=== PATIENT | male | born 1970 | race Two or more races ===

== ENCOUNTER 2018-04-28 13:52 | Emergency (ER) | payer MEDICARE, OTHER ==
[2018-04-28 14:16] VITALS: RESP 16
--- NOTE | 2018-04-28 14:45 | XR ---
EXAMINATION TYPE: XR toes RT DATE OF EXAM: 04/28/2018 COMPARISON: Bilateral foot x-ray February 02, 2015 HISTORY: Contusion injury with pain. TECHNIQUE: 3 views of right first toe were acquired. FINDINGS: There is acute oblique minimally displaced fracture through mid shaft of first proximal pha lanx, distal fracture fragment is slightly distracted with abnormal dorsal angulation seen on lateral view. Joint spaces are preserved. Moderate diffuse subcutaneous edema is present. IMPRESSION: Acute displaced oblique fracture through the first proximal phalanx. (Initial encounter close type post traumatic fracture)
--- NOTE | 2018-04-28 15:09 | ED ---
Lower Extremity Injury HPI - General Chief Complaint: Extremity Injury, Lower Stated Complaint: Foot injury Time Seen by Provider: 04/28/18 14:36 Source: patient Mode of arrival: wheelchair Limitations: no limitations - History of Present Illness Initial Comments: 47-year-old male presents today for chief complaint of right great toe pain. Patient states that just 5 minutes prior to arrival he was at his home when his cat had brought a mouse into the home. He states he went to kick the mouse when he accidentally kicked the door frame. Patient noted swelling in his big toe and pain with ambulation and weightbearing. Patient denied any pain in the ankle. Patient was concerned for fracture present today for evaluation. Patient denies any numbness, tingling, loss sensation, cooler or pallor of the extremity. Patient denies any gross deformity, abrasions or lacerations. Remainder of ROS negative, patient denies any recent fever, chills, shortness of breath, chest pain, back pain, abdominal pain, nausea or vomiting, numbness or tingling, dysuria or hematuria, constipation or diarrhea, headaches or visual changes, or any other complaints. Patient is well-appearing upon arrival , elevated BP noted. - Related Data Previous Rx's Medication Instructions Recorded HYDROcodone/APAP 5-325MG [[place] 1 tab PO Q6HR #10 tab 04/17/16 5-325] Allergies Allergy/AdvReac Type Severity Reaction Status Date / Time No Known Allergies Allergy Verified 04/28/18 14:16 Review of Systems ROS Statement: Those systems with pertinent positive or pertinent negative responses have been documented in the HPI. ROS Other: All systems not noted in ROS Statement are negative. Constitutional: Denies: fever, chills ENT: Denies: ear pain, throat pain Respiratory: Denies: cough, dyspnea, wheezes Cardiovascular: Denies: chest pain, palpitations Endocrine: Denies: fatigue Gastrointestinal: Denies: abdominal pain, nausea, vomiting, diarrhea Genitourinary: Denies: urgency, dysuria Musculoskeletal: Reports: joint swelling (Swelling at the right great toe), arthralgia Skin: Reports: change in color (Bruising of the right great toe). Denies: rash (Right great toe), lesions Neurological: Denies: headache, weakness, numbness, paresthesias Past Medical History Past Medical History: Diabetes Mellitus, Hypertension Additional Past Medical History / Comment(s): Chronic back pain, sleep apnea, History of Any Multi-Drug Resistant Organisms: None Reported Past Surgical History: Orthopedic Surgery Additional Past Surgical History / Comment(s): Knee and shoulder surgery Past Psychological History: PTSD Smoking Status: Never smoker Past Alcohol Use History: Rare Past Drug Use History: None Reported General Exam - General Exam Comments Initial Comments: General: The patient is awake and alert, in no distress, and does not appear acutely ill. Eye: Pupils are equal, round and reactive to light, extra-ocular movements are intact. No nystagmus. There is normal conjunctiva bilaterally. No signs of icterus. Ears, nose, mouth and throat: There are moist mucous membranes and no oral lesions. Neck: The neck is supple, there is no tenderness or JVD. Cardiovascular: There is a regular rate and rhythm. No murmur, rub or gallop is appreciated. Respiratory: Lungs are clear to auscultation, respirations are non-labored, breath sounds are equal. No wheezes, stridor, rales, or rhonchi. Musculoskeletal: No noted gross deformity upon inspection of the right great toe. Pt is able to wiggle all 5 digits of the right foot. There is noted swelling over the length of the right great toe. As well as ecchymosis. Patient is full sensation to light palpation over the right great toe as well as the foot. There is some mild swelling at the base of the right great toe however this does not extend throughout the forefoot. Patient is tender to palpation along the length of the right great toe to the base at the MTP joint. Patient denies any tenderness to palpation at the ankle. Patient is able to range at the ankle with flexion, extension inversion eversion without any complaints of pain and with strength 5/5. DP Pulses equal bilaterally 2+. Capillary refill < 2seconds. Neurological: A&O x 3. CN II-XII intact, There are no obvious motor or sensory deficits. Coordination appears grossly intact. Speech is normal. Skin: Skin is warm and dry and no rashes or lesions are noted. Psychiatric: Cooperative, appropriate mood & affect, normal judgment. Limitations: no limitations Course Vital Signs 04/28/18 04/28/18 14:14 16:29 Temperature 98.4 F 98.2 F Pulse Rate 95 90 Respiratory 16 16 Rate Blood Pressure 153/99 132/78 O2 Sat by Pulse 95 100 Oximetry Medical Decision Making - Medical Decision Making Patient neurovascularly intact. No pain to palpation over lis franc ligament. X -rays revealed an acute comminuted displaced fracture through the first proximal phalanx with mild dorsal angulation. Pt was placed in a posterior mold splint given crutches for ambulation and instructed to f/u with orthopedic surgery in the next 1-2 days. Case discussed with Dr. Velez who agrees the impression and plan. Patient was discharged in stable condition. All return parameters were discussed at length patient, patient verbalized understanding. Patient is to follow rice instruction and take ibuprofen Tylenol for pain management. Patient verbalized understanding of all return parameters and plan, denied questions at this time. Marked improvement of prior elevated blood pressure upon discharge. Disposition Clinical Impression: Closed fracture of left great toe Disposition: HOME SELF-CARE Condition: Good Instructions: Toe Fracture (ED), R.I.C.E. Treatment (ED) Additional Instructions: Please use medication as discussed. Please follow-up with orthopedic surgery in the next 1-2 days. Please use crutches for ambulation. Please return to emergency room if the symptoms increase or worsen or for any other concerns. Is patient prescribed a controlled substance at d/c from ED?: No Referrals: [facility],Clinic [Primary Care Provider] - 1-2 days Evans Tucker MD [STAFF PHYSICIAN] - 1-2 days Time of Disposition: 15:09
--- NOTE | 2018-04-28 15:51 | XR ---
EXAMINATION TYPE: XR foot complete RT DATE OF EXAM: 04/28/2018 CLINICAL HISTORY: Contusion injury with pain. TECHNIQUE: Frontal, lateral, and oblique images of the right foot are obtained. COMPARISON: Right first toe x-ray earlier today FINDINGS: There is redemonstration of an acute comminuted displaced fracture through first proximal p halanx with slight distraction remaining present there is interval improvement in dorsal angulation o n lateral view. Evaluation slightly suboptimal due to osseous overlap on lateral view. There is no ad ditional acute fracture/dislocation evident in the right foot. The joint spaces in the right foot ap pear within normal limits. Incidental moderate size inferior calcaneal spur. The overlying soft tiss ue appears unremarkable. IMPRESSION: There is no additional acute fracture or dislocation in the right foot. Better visualiza tion of acute comminuted minimally displaced fracture first proximal phalanx on current study, interv al improvement in dorsal angulation felt present.
[2018-04-28 16:30] VITALS: BP 132/78; PULSE 90; TEMP 98.2
== END 2018-04-28 16:29 | disposition home or self-care (01) ==
LOC: EC 13:52
DX: S92.411A Displaced fracture of proximal phalanx of right great toe, initial encounter for closed fracture (principal); W22.8XXA Striking against or struck by other objects, initial encounter; Y92.009 Unspecified place in unspecified non-institutional (private) residence as the place of occurrence of the external cause
CPT/HCPCS: 29515; 99283

== ENCOUNTER 2019-07-27 16:34 | Observation (INO) | payer MEDICARE, OTHER ==
[2019-07-27] MEDS ORDERED: ASPIRIN 81 MG PO STA (17:09)
--- NOTE | 2019-07-27 17:22 | ED ---
Chest Pain HPI - General Chief Complaint: Chest Pain Stated Complaint: chest pain Time Seen by Provider: 07/27/19 16:42 Source: patient, family, RN notes reviewed Mode of arrival: ambulatory Limitations: no limitations - History of Present Illness Initial Comments: This is a 48-year-old male no prior history of heart disease with a strong family history of heart disease who states he had the onset today of sharp chest pain going across his chest. States it would be fleeting is had increased episodes over this afternoon. It is worse is 6-7/10 in severity currently is 0 as so stably shortness of breath cough fevers chills nausea vomiting sweats he is unable to reproduce it by movements. No other modifying factors. He is a nonsmoker. MD Complaint: chest pain - Related Data Home Medications Medication Instructions Recorded Confirmed Aspirin EC [Ecotrin Low Dose] 81 mg PO DAILY 07/27/19 07/27/19 Atorvastatin [Lipitor] 20 mg PO DAILY 07/27/19 07/27/19 Lisinopril [Prinivil] 10 mg PO DAILY 07/27/19 07/27/19 Ubidecarenone [Co Q-10] 200 mg PO DAILY 07/27/19 07/27/19 sitaGLIPtin [Januvia] 100 mg PO DAILY 07/27/19 07/27/19 Allergies Allergy/AdvReac Type Severity Reaction Status Date / Time No Known Allergies Allergy Verified 07/27/19 18:01 Review of Systems ROS Statement: Those systems with pertinent positive or pertinent negative responses have been documented in the HPI. ROS Other: All systems not noted in ROS Statement are negative. EKG Findings - EKG Results: EKG: interpreted by DANIEL WNL, sinus rhythm, normal axis, normal QRS, normal ST/T, no acute changes (EKG shows normal sinus rhythm a 64. Interval 180 QRS duration 86 daily since QTC 420/[address]-T wave changes) Past Medical History Past Medical History: Diabetes Mellitus, Hypertension, Sleep Apnea/CPAP/BIPAP Additional Past Medical History / Comment(s): Chronic back pain, sleep apnea, History of Any Multi-Drug Resistant Organisms: None Reported Past Surgical History: Orthopedic Surgery Additional Past Surgical History / Comment(s): Knee and shoulder surgery Past Psychological History: PTSD Smoking Status: Never smoker Past Alcohol Use History: Occasional Past Drug Use History: None Reported General Exam - General Exam Comments Initial Comments: This is a well-developed well-nourished awake alert oriented 3 male Limitations: no limitations General appearance: alert, in no apparent distress Head exam: Present: atraumatic, normocephalic, normal inspection Eye exam: Present: normal appearance, PERRL, EOMI. Absent: scleral icterus, conjunctival injection, periorbital swelling ENT exam: Present: normal exam, mucous membranes moist Neck exam: Present: normal inspection. Absent: tenderness, meningismus, lymphadenopathy Respiratory exam: Present: normal lung sounds bilaterally. Absent: respiratory distress, wheezes, rales, rhonchi, stridor Cardiovascular Exam: Present: regular rate, normal rhythm, normal heart sounds. Absent: systolic murmur, diastolic murmur, rubs, gallop, clicks GI/Abdominal exam: Present: soft, normal bowel sounds. Absent: distended, tenderness, guarding, rebound, rigid Extremities exam: Present: normal inspection, full ROM, normal capillary refill. Absent: tenderness, pedal edema, joint swelling, calf tenderness Back exam: Present: normal inspection Neurological exam: Present: alert, oriented X3, CN II-XII intact Psychiatric exam: Present: normal affect, normal mood Skin exam: Present: warm, dry, intact, normal color. Absent: rash Course Vital Signs 07/27/19 07/27/19 16:47 17:23 Temperature 98.4 F Pulse Rate 66 68 Respiratory 18 18 Rate Blood Pressure 153/100 145/100 O2 Sat by Pulse 93 L 100 Oximetry Chest Pain MDM - MDM I did reevaluate patient on several occasions no further chest pain reported. X-rays are unremarkable for acute findings. I did a long discussion with family regarding the findings patient does have extensive family history of heart disease at a younger age and he is at this time. Due to the fact as well as of patient does now state that felt more like a 2 x 4 going across his chest and a sharp knifelike pain patient be admitted for further inpatient evaluation. The case is discussed with Christina Lake's FILTER [employer]ESS PU[employer]ER Disposition Clinical Impression: Chest pain Disposition: ADMITTED IP TO THIS HOSP Condition: Fair Referrals: Maribell Cotter DO [Primary Care Provider] - 1-2 days
[2019-07-27 17:31] LABS: Basophils % (A) 1 %; Eosinophils # (A) 0.1 k/uL (0-0.7); Eosinophils % (A) 1 %; HCT 45.7 % (39.0-53.0); HGB 15.5 gm/dL (13.0-17.5); Lymphocytes # (A) 2.1 k/uL (1.0-4.8); Lymphocytes % (A) 28 %; MCH 29.1 pg (25.0-35.0); MCV 85.6 fL (80.0-100.0); Mean Platelet Volume 8.7; Monocytes # (A) 0.5 k/uL (0-1.0); Monocytes % (A) 6 %; Neutrophils # (A) 4.7 k/uL (1.3-7.7); Neutrophils % (A) 62 %; Platelet Count 238 k/uL (150-450); RBC 5.33 m/uL (4.30-5.90); WBC 7.6 k/uL (3.8-10.6)
[2019-07-27 17:45] LABS: ALT 39 U/L (4-49); AST 27 U/L (17-59); African American GFR (CKD) >90 (>60 ml/min/1.73 sqM); Albumin 4.4 g/dL (3.5-5.0); Alkaline Phosphatase 83 U/L (38-126); Anion Gap 9 mmol/L; Blood Urea Nitrogen 14 mg/dL (9-20); Calcium 9.1 mg/dL (8.4-10.2); Carbon Dioxide 27 mmol/L (22-30); Chloride 101 mmol/L (98-107); Glucose 209 mg/dL (74-99); Magnesium 2.1 mg/dL (1.6-2.3); Non-African American GFR(CKD) >90 (>60 ml/min/1.73 sqM); Potassium 3.9 mmol/L (3.5-5.1); Sodium 137 mmol/L (137-145); Total Bilirubin 0.4 mg/dL (0.2-1.3); Total Protein 6.9 g/dL (6.3-8.2)
[2019-07-27 17:48] LABS: D-Dimer 0.32 mg/L FEU (<0.60); Partial Thromboplastin Time 24.6 sec (22.0-30.0); Prothrombin Time 9.9 sec (9.0-12.0)
--- NOTE | 2019-07-27 18:54 | XR ---
EXAMINATION TYPE: XR chest 2V DATE OF EXAM: 07/27/2019 COMPARISON: 03/13/2016 HISTORY: Chest pain TECHNIQUE: FINDINGS: Heart and mediastinum are normal. There is small linear density left lung base. There is no pleural effusion. There are no hilar masses. IMPRESSION: Mild subsegmental atelectasis left lung base is new compared to old exam. Normal heart.
[2019-07-27] MEDS ORDERED: NITROGLYCERIN SL TABS 0.4 MG TAB SUBLINGUAL PRN (19:31)
[2019-07-27] MEDS ORDERED: SODIUM CHLORIDE 0.9% 1,000 ML IV SCH (19:45)
[2019-07-27] MEDS ORDERED: NITROGLYCERIN OINT 1 INCH/GM PACKET TOPICAL STA (20:14)
[2019-07-27] MEDS ORDERED: HEPARIN SODIUM,PORCINE 5,000 UNIT/ML 1 ML VIAL IV ONE (20:19)
[2019-07-27] MEDS ORDERED: HEPARIN SODIUM,PORCINE 5,000 UNIT/ML 1 ML VIAL IV PRN (20:19)
[2019-07-27] MEDS ORDERED: HEPARIN SOD,PORK IN 0.45% NACL 25,000 UNIT in 0.45% NACL 1 250ML.BAG IV SCH (20:30)
[2019-07-27] MEDS ORDERED: LISINOPRIL 10 MG TAB PO STA (20:43)
[2019-07-28] MEDS ORDERED: ACETAMINOPHEN TAB 325 MG TAB PO STA (01:40)
[2019-07-28] MEDS: NITROGLYCERIN OINT 1 INCH/GM PACKET TOPICAL SCH ×2 (01:56→09:16)
[2019-07-28 05:33] LABS: Basophils % (A) 0 %; Eosinophils # (A) 0.1 k/uL (0-0.7); Eosinophils % (A) 1 %; HCT 44.2 % (39.0-53.0); Lymphocytes % (A) 22 %; MCH 29.2 pg (25.0-35.0); MCHC 33.9 g/dL (31.0-37.0); MCV 86.2 fL (80.0-100.0); Mean Platelet Volume 8.6; Monocytes # (A) 0.4 k/uL (0-1.0); Monocytes % (A) 4 %; Neutrophils # (A) 6.2 k/uL (1.3-7.7); Neutrophils % (A) 71 %; Platelet Count 231 k/uL (150-450); RBC 5.13 m/uL (4.30-5.90); RDW 13.1 % (11.5-15.5); WBC 8.7 k/uL (3.8-10.6)
[2019-07-28 05:53] LABS: Cholesterol 138 mg/dL (<200); HDL Cholesterol 44 mg/dL (40-60); LDL Cholesterol,Calculated 73 mg/dL (0-99); Triglycerides 104 mg/dL (<150)
[2019-07-28 07:57] VITALS: RESP 18
[2019-07-28] MEDS ORDERED: AMINOPHYLLINE 500 MG/20 ML VIAL IV PRN (08:32)
[2019-07-28] MEDS ORDERED: CAFFEINE CITRATE 60 MG/3 ML VIAL IV PRN (08:32)
[2019-07-28] MEDS ORDERED: ASPIRIN 325 MG TAB PO SCH (09:00)
[2019-07-28] MEDS ORDERED: DIPYRIDAMOLE IV ONE (09:00)
[2019-07-28] MEDS ORDERED: ASPIRIN 81 MG PO SCH (09:00)
[2019-07-28] MEDS ORDERED: ATORVASTATIN 20 MG TAB PO SCH (09:00)
[2019-07-28] MEDS ORDERED: SODIUM CHLORIDE 0.9% IV ONE (09:00)
[2019-07-28] MEDS ORDERED: LISINOPRIL 10 MG TAB PO SCH (09:00)
[2019-07-28] MEDS ORDERED: LINAGLIPTIN 5 MG TABLET PO SCH (09:00)
[2019-07-28] MEDS ORDERED: AMINOPHYLLINE 500 MG/20 ML VIAL IV ONE (10:05)
--- NOTE | 2019-07-28 10:19 | P.CRDCN ---
History of Present Illness History of present illness: HISTORY OF PRESENTING ILLNESS This is a pleasant 48-year-old male past medical history significant for diabetes mellitus, hypertension, obstructive sleep apnea and chronic back pain. He denies prior history of coronary artery disease and does not follow in the office with a cost estimator. We have been asked to see in consultation for chest pain. He said yesterday while he was driving in the car he had an episode of chest discomfort in the left precordial region with radiation to the left shoulder. He states it felt like somebody had a 2 x 4 most pressing against his chest. The symptoms lasted for about 3-5 minutes and slowly subsided on their own. It was not associated with shortness of breath, dizziness, palpitations, nausea, vomiting or diaphoresis. A couple of hours later after he was done with his shopping he had another episode of discomfort in the left precordial region again with radiation to the left shoulder with similar type sensation at this time was associated with a brief period of feeling lightheaded. He pulled the car over asked his drive him to the emergency department. He has had no further symptoms since arriving in the hospital. His pain had subsided prior to arrival. He states he has been noncompliant with his antihypertensive medicatio ns. Blood pressure on arrival 153/100 with a peak of 176/113. DIAGNOSTICS EKG reveals sinus mechanism with flattened T waves in the inferior lateral leads. Chest xray mild subsegmental atelectasis at the left lung base. Laboratory reviewed, CBC unremarkable, d-dimer 0.32, sodium 137, potassium 3.9, creatinine 0.61 with a GFR greater than 90, magnesium 2.1, cardiac enzymes negative 3, NT proBNP 22, LDL 73. Current cardiac medications include aspirin 81 mg daily, atorvastatin 20 mg daily and lisinopril 10 mg daily. REVIEW OF SYSTEMS At the time of my exam: CONSTITUTIONAL: Denies fever or chills. CARDIOVASCULAR: Denies chest pain, shortness of breath, orthopnea, PND or palpitations. RESPIRATORY: Denies cough. GASTROINTESTINAL: Denies abdominal pain, diarrhea, constipation, nausea or vom iting. MUSCULOSKELETAL: Denies myalgias. NEUROLOGIC: Denies numbness, tingling or weakness. ENDOCRINE: Denies fatigue, weight change, polydipsia or polyurina. GENITOURINARY: Denies burning, hematuria or urgency with micturation. HEMATOLOGIC: Denies history of anemia or bleeding. PHYSICAL EXAMINATION Blood pressure 122/74 heart rate 56 afebrile and maintaining oxygen saturation on room air. CONSTITUTIONAL: No apparent distress. HEENT: Head is normocephalic. Pupils are equal, round. Sclerae anicteric. Mucous membranes of the mouth are moist. No JVD. No carotid bruit. CHEST EXAMINATION: Lungs are clear to auscultation. No chest wall tenderness is noted on palpation or with deep breathing. HEART EXAMINATION: Regular rate and rhythm. S1, S2 heard. No murmurs, gallops or rub. ABDOMEN: Soft, nontender. Positive bowel sounds. EXTREMITIES: 2+ peripheral pulses, no lower extremity edema and no calf tenderness. NEUROLOGIC EXAMINATION: Patient is awake, alert and oriented x3. ASSESSMENT Precordial chest pain Hypertension, uncontrolled secondary to noncompliance Diabetes mellitus Dyslipidemia Obstructive sleep apnea Obesity, BMI 33 PLAN An acute coronary event has been ruled out. Obtain 2-D echocardiogram and Doppler study to assess cardiac structure and function. Proceed with Persantine stress test to assess for reversible cardiac ischemia. If abnormal we will consider coronary angiography. Lengthy discussion regarding medication compliance. Check hemoglobin A1c. Thank you kindly for this consultation. Nurse Practitioner note has been reviewed, I agree with a documented findings and plan of care. Patient was seen and examined. Past Medical History Past Medical History: Diabetes Mellitus, Hypertension, Sleep Apnea/CPAP/BIPAP Additional Past Medical History / Comment(s): Chronic back pain, sleep apnea, TBI History of Any Multi-Drug Resistant Organisms: None Reported Past Surgical History: Orthopedic Surgery Additional Past Surgical History / Comment(s): Knee and shoulder surgery Past Anesthesia/Blood Transfusion Reactions: Previous Problems w/ Anesthesia Additional Past Anesthesia/Blood Transfusion Reaction / Comment(s): Had to be reintubated in recovery due to possible anestesia reaction. Past Psychological History: PTSD Smoking Status: Never smoker Past Alcohol Use History: Occasional Past Drug Use History: None Reported Medications and Allergies Home Medications Medication Instructions Recorded Confirmed Type Aspirin EC [Ecotrin Low Dose] 81 mg PO DAILY 07/27/19 07/27/19 History Atorvastatin [Lipitor] 20 mg PO DAILY 07/27/19 07/27/19 History Lisinopril [Prinivil] 10 mg PO DAILY 07/27/19 07/27/19 History Ubidecarenone [Co Q-10] 200 mg PO DAILY 07/27/19 07/27/19 History sitaGLIPtin [Januvia] 100 mg PO DAILY 07/27/19 07/27/19 History Allergies Allergy/AdvReac Type Severity Reaction Status Date / Time No Known Allergies Allergy Verified 07/27/19 18:01 Physical Exam Vitals: Vital Signs Temp Pulse Pulse Resp BP BP BP 07/28/19 07:40 97.5 F L 56 L 18 122/74 07/28/19 04:30 98.3 F 67 15 107/66 07/27/19 22:45 98.0 F 65 16 148/90 07/27/19 22:23 65 18 158/98 07/27/19 20:39 61 18 170/107 07/27/19 20:10 157/110 07/27/19 20:07 65 18 176/113 07/27/19 19:36 63 18 154/91 07/27/19 17:23 68 18 145/100 07/27/19 16:47 98.4 F 66 18 153/100 Pulse Ox 07/28/19 07:40 98 07/28/19 04:30 96 07/27/19 22:45 97 07/27/19 22:23 98 07/27/19 20:39 100 07/27/19 20:10 07/27/19 20:07 97 07/27/19 19:36 98 07/27/19 17:23 100 07/27/19 16:47 93 L Intake and Output 07/27/19 07/28/19 07/28/19 22:59 06:59 14:59 Intake Total 62.588 Balance 62.588 Intake: Intake, IV Titration 62.588 Amount Heparin Sod,Pork in 0.45% 62.588 NaCl 25,000 unit In 0.45 % NaCl 1 250ml.bag @ 9.7 UNITS/KG/HR 9.961 mls/hr IV .Q24H [facility] Rx#: [id number] Other: Voiding Method Toilet # Voids 1 Weight 102.693 kg Results 07/28/19 05:11 07/27/19 17:00 Cardiac Enzymes 07/27/19 07/27/19 07/27/19 Range/Units 17:00 17:00 23:25 AST 27 (17-59) U/L Troponin I <0.012 <0.012 (0.000-0.034) ng/mL 07/28/19 Range/Units 05:11 AST (17-59) U/L Troponin I <0.012 (0.000-0.034) ng/mL Coagulation 07/27/19 07/28/19 Range/Units 17:00 02:24 PT 9.9 (9.0-12.0) sec APTT 24.6 35.3 H (22.0-30.0) sec Lipids 07/28/19 Range/Units 05:11 Triglycerides 104 (<150) mg/dL Cholesterol 138 (<200) mg/dL HDL Cholesterol 44 (40-60) mg/dL CBC 07/27/19 07/28/19 Range/Units 17:00 05:11 WBC 7.6 8.7 (3.8-10.6) k/uL RBC 5.33 5.13 (4.30-5.90) m/uL Hgb 15.5 15.0 (13.0-17.5) gm/dL Hct 45.7 44.2 (39.0-53.0) % Plt Count 238 231 (150-450) k/uL Comprehensive Metabolic Panel 07/27/19 Range/Units 17:00 Sodium 137 (137-145) mmol/L Potassium 3.9 (3.5-5.1) mmol/L Chloride 101 (98-107) mmol/L Carbon Dioxide 27 (22-30) mmol/L BUN 14 (9-20) mg/dL Creatinine 0.61 L (0.66-1.25) mg/dL Glucose 209 H (74-99) mg/dL Calcium 9.1 (8.4-10.2) mg/dL AST 27 (17-59) U/L ALT 39 (4-49) U/L Alkaline Phosphatase 83 (38-126) U/L Total Protein 6.9 (6.3-8.2) g/dL Albumin 4.4 (3.5-5.0) g/dL Current Medications Generic Name Dose Route Start Last Admin Trade Name Freq PRN Reason Stop Dose Admin Aspirin 325 mg 07/28/19 09:00 Aspirin PO DAILY [facility] Atorvastatin Calcium 20 mg 07/28/19 09:00 Lipitor PO DAILY [facility] Heparin Sodium (Porcine) 0 unit 07/27/19 20:19 07/28/19 02:52 Heparin IV 2,550 unit PER PROTOCOL PRN Administration Low PTT Protocol Sodium Chloride 1,000 mls @ 20 mls/hr 07/27/19 19:45 07/27/19 20:34 Saline 0.9% IV 20 mls/hr .Q24H JYOTHI Administration Heparin Sodium/Sodium Chloride 250 mls @ 9.961 mls/hr 07/27/19 20:30 07/28/19 02:53 25,000 unit/ Sodium Chloride IV 11.7 units/kg/hr .Q24H JYOTHI 12.015 mls/hr Titration Protocol 9.7 UNITS/KG/HR Linagliptin 5 mg 07/28/19 09:00 Tradjenta PO DAILY [facility] Lisinopril 10 mg 07/28/19 09:00 Zestril PO DAILY [facility] Nitroglycerin 0.4 mg 07/27/19 19:31 07/27/19 20:06 Nitrostat SUBLINGUAL 0.4 mg Q5M PRN Administration Chest Pain Nitroglycerin 1 inch 07/28/19 00:00 07/28/19 01:56 Nitro-Bid Oint TOPICAL Not Given Q6HR [facility] Intake and Output 07/27/19 07/28/19 07/28/19 22:59 06:59 14:59 Intake Total 62.588 Balance 62.588 Intake: Intake, IV Titration 62.588 Amount Heparin Sod,Pork in 0.45% 62.588 NaCl 25,000 unit In 0.45 % NaCl 1 250ml.bag @ 9.7 UNITS/KG/HR 9.961 mls/hr IV .Q24H [facility] Rx#: [id number] Other: Voiding Method Toilet # Voids 1 Weight 102.693 kg 07/28/19 05:11 07/27/19 17:00
--- NOTE | 2019-07-28 11:33 | NM ---
EXAMINATION TYPE: NM stress persantine cardiolit DATE OF EXAM: 07/28/2019 COMPARISON: NONE HISTORY: Chest pain TECHNIQUE: After the intravenous administration of 10.45 mCi Tc 99m Sestamibi - Cardiolite resting S PECT images acquired 45 minutes post injection. The patient received 55 mg Persantine, 23.4 mCi Tc 99m Sestamibi - Stress images obtained 30 minutes post injection FINDINGS: Review of stress and rest SPECT images demonstrates no distinct perfusion abnormality. Rest defect i s seen of the lateral wall that is not redemonstrated on stress images and is therefore artifactual. Gated analysis shows normal wall motion with an estimated left ventricular ejection fraction of 53 %. TID is within normal limits calculated at 1.10. IMPRESSION: No scintigraphic evidence for reversible ischemia. Estimated left ventricular ejection fraction of 53 %.
--- NOTE | 2019-07-28 13:00 | ECHOF ---
Referral Reason:Chest pain MEASUREMENTS -------- HEIGHT: 175.3 cm WEIGHT: 102.5 kg BP: 107/66 RVIDd: 3.5 cm (< 3.3) IVSd: 1.5 cm (0.6 - 1.1) LVIDd: 4.8 cm (3.9 - 5.3) LVPWd: 1.2 cm (0.6 - 1.1) IVSs: 1.7 cm LVIDs: 2.9 cm LVPWs: 1.9 cm LA Diam: 3.8 cm (2.7 - 3.8) Ao Diam: 4.0 cm (2.0 - 3.7) AV Cusp: 2.4 cm (1.5 - 2.6) MV EXCURSION: 18.742 mm (> 18.000) MV EF SLOPE: 41 mm/s (70 - 150) EPSS: 0.6 cm MV E Lionel: 0.84 m/s MV DecT: 245 ms MV A Lionel: 0.95 m/s MV E/A Ratio: 0.88 RAP: 5.00 mmHg RVSP: 19.26 mmHg FINDINGS -------- Sinus rhythm. This was a technically good study. The left ventricular size is normal. There is moderate concentric left ventricular hypertrophy. O verall left ventricular systolic function is normal with, an EF between 60 - 65 %. The right ventricle is mildly enlarged. Normal LA size by volume 22+/-6 ml/m2. The right atrium is normal in size. Interatrial and interventricular septum intact. The aortic valve is trileaflet and appears structurally normal. The mitral valve is normal. Mild tricuspid regurgitation present. Right ventricular systolic pressure is normal at < 35 mmHg. There is no pulmonic regurgitation present. The aortic root is dilated measuring 4.0cm. Normal inferior vena cava with normal inspiratory collapse consistent with estimated right atrial pre ssure of 5 mmHg. There is no pericardial effusion. CONCLUSIONS -------- 1. Sinus rhythm. 2. This was a technically good study. 3. The left ventricular size is normal. 4. There is moderate concentric left ventricular hypertrophy. 5. Overall left ventricular systolic function is normal with, an EF between 60 - 65 %. 6. The right ventricle is mildly enlarged. 7. Normal LA size by volume 22+/-6 ml/m2. 8. The right atrium is normal in size. 9. Interatrial and interventricular septum intact. 10. The aortic valve is trileaflet and appears structurally normal. 11. The mitral valve is normal. 12. Mild tricuspid regurgitation present. 13. Right ventricular systolic pressure is normal at < 35 mmHg. 14. There is no pulmonic regurgitation present. 15. The aortic root is dilated measuring 4.0cm. 16. Normal inferior vena cava with normal inspiratory collapse consistent with estimated right atrial pressure of 5 mmHg. 17. There is no pericardial effusion. HARDWARE TECHNICIAN: Yamileth Hoff RDCS
--- NOTE | 2019-07-28 13:49 | EST ---
EXERCISE STRESS AGE: 58 SEX: M HT: 69" WT: 226 PROTOCOL: Persantine Cardiolite Stress Test HEART RATE REST: 60 BLOOD PRESSURE REST: 139/94 MAXIMUM HEART RATE ACHIEVED: 82 MAXIMUM BLOOD PRESSURE: 146/84 INDICATIONS: Chest pain. CLINICAL INFORMATION: STRESS DATA: Heart rate 60, pressure is 139/94 mmHg. Baseline EKG showed sinus rhythm. The patient was given 55 mg of Persantine per protocol. Max heart rate was 82 beats per minute and maximum pressure was 146/84 mmHg. Clinically, the patient did not have any symptoms and the EKG did not show any significant ST or T-wave abnormalities concerning for ischemia. CONCLUSION: 1. Nondiagnostic electrocardiogram stress testing in response to Persantine. 2. Please follow up on the Cardiolite portion on separate report from Radiology Department. MMODL / IJN: [id number] /
[2019-07-28 15:40] VITALS: BP 137/86; PULSE 64; TEMP 97.9
[2019-07-28 18:26] LABS: Hemoglobin A1C 7.9 % (4.0-6.0)
== END 2019-07-28 16:05 | disposition home or self-care (01) ==
LOC: EC 16:34 → 1SOBS 19:31
PROVIDERS: ADMIT Hospitalist; ATTEND Hospitalist
DX: R07.2 Precordial pain (principal); R51 Headache; E11.9 Type 2 diabetes mellitus without complications; I10 Essential (primary) hypertension; G47.33 Obstructive sleep apnea (adult) (pediatric); G89.29 Other chronic pain; M54.9 Dorsalgia, unspecified; F43.10 Post-traumatic stress disorder, unspecified; E78.5 Hyperlipidemia, unspecified; E66.9 Obesity, unspecified; I07.1 Rheumatic tricuspid insufficiency; J98.11 Atelectasis; Z68.33 Body mass index [BMI] 33.0-33.9, adult; Z87.820 Personal history of traumatic brain injury; Z99.89 Dependence on other enabling machines and devices; Z79.82 Long term (current) use of aspirin; Z79.84 Long term (current) use of oral hypoglycemic drugs; Z79.899 Other long term (current) drug therapy; Z82.49 Family history of ischemic heart disease and other diseases of the circulatory system
CPT/HCPCS: 93005 ×2; 96366 ×3; 96376 ×2; 96365; 99285; 36415; 93017; 93306; 85379; 83880; 80061; 80053; 83735; 84484 ×2; 85025 ×2; 85610; 85730 ×2; 83036; 71046; 78452; G0378 ×2; A9500; J1644 ×3; J0280; J1245

== ENCOUNTER 2020-03-27 14:08 | Emergency (ER) | payer MEDICARE, OTHER ==
[2020-03-27 14:13] VITALS: RESP 16; TEMP 98.2
[2020-03-27] MEDS ORDERED: ASPIRIN 81 MG PO STA (14:16)
--- NOTE | 2020-03-27 14:26 | ED ---
Chest Pain HPI - General Chief Complaint: Chest Pain Stated Complaint: Chest pain Time Seen by Provider: 03/27/20 14:15 Source: patient, family Mode of arrival: ambulatory Limitations: no limitations - History of Present Illness Initial Comments: Patient complains of chest pain. The pain began an hour ago. He describes as a pressure. It is in the center of the chest. It radiated to the left arm. He has no nausea or vomiting or diaphoresis. He was not doing anything when this began. He has no history of heart attack or stroke. He has no swelling in the arms or legs. He has no palpitations. He has no weakness. He has no lightheadedness or dizziness. - Related Data Home Medications Medication Instructions Recorded Confirmed Aspirin EC [Ecotrin Low Dose] 162 mg PO ONCE PRN 07/27/19 03/27/20 Allergies Allergy/AdvReac Type Severity Reaction Status Date / Time No Known Allergies Allergy Verified 03/27/20 16:17 Review of Systems ROS Statement: Those systems with pertinent positive or pertinent negative responses have been documented in the HPI. ROS Other: All systems not noted in ROS Statement are negative. EKG Findings - EKG Comments: EKG Findings:: twelve-lead EKG shows ventricular rate 72 bpm, normal NM interval, normal QS complexes, no ST elevation or depression, interpreted by me as normal sinus rhythm. Past Medical History Past Medical History: Diabetes Mellitus, Hypertension, Sleep Apnea/CPAP/BIPAP Additional Past Medical History / Comment(s): Chronic back pain, sleep apnea, TBI History of Any Multi-Drug Resistant Organisms: None Reported Past Surgical History: Orthopedic Surgery Additional Past Surgical History / Comment(s): Knee and shoulder surgery Past Anesthesia/Blood Transfusion Reactions: Previous Problems w/ Anesthesia Additional Past Anesthesia/Blood Transfusion Reaction / Comment(s): Had to be reintubated in recovery due to possible anestesia reaction. Past Psychological History: PTSD Smoking Status: Former smoker, Never smoker Past Alcohol Use History: Rare Past Drug Use History: None Reported General Exam Limitations: no limitations General appearance: alert, in no apparent distress Head exam: Present: atraumatic, normocephalic, normal inspection Eye exam: Present: normal appearance, PERRL, EOMI. Absent: scleral icterus, conjunctival injection, periorbital swelling ENT exam: Present: normal exam, mucous membranes moist Neck exam: Present: normal inspection. Absent: tenderness, meningismus, lymphadenopathy Respiratory exam: Present: normal lung sounds bilaterally. Absent: respiratory distress, wheezes, rales, rhonchi, stridor Cardiovascular Exam: Present: regular rate, normal rhythm, normal heart sounds. Absent: systolic murmur, diastolic murmur, rubs, gallop, clicks GI/Abdominal exam: Present: soft, normal bowel sounds. Absent: distended, t enderness, guarding, rebound, rigid Extremities exam: Present: normal inspection, full ROM, normal capillary refill. Absent: tenderness, pedal edema, joint swelling, calf tenderness Back exam: Present: normal inspection Neurological exam: Present: alert, oriented X3, CN II-XII intact Psychiatric exam: Present: normal affect, normal mood Skin exam: Present: warm, dry, intact, normal color. Absent: rash Course Vital Signs 03/27/20 03/27/20 03/27/20 14:10 14:30 15:00 Temperature 98.2 F Pulse Rate 82 72 64 Respiratory 16 Rate Blood Pressure 148/95 125/82 O2 Sat by Pulse 96 97 97 Oximetry 03/27/20 15:30 Temperature Pulse Rate 68 Respiratory Rate Blood Pressure 125/84 O2 Sat by Pulse Oximetry Chest Pain MDM - MDM I reevaluated the patient after his labs are completed. He does have 2 negative troponins. Patient is symptom-free at this time. He states that his symptoms were likely secondary to some bad news that he received. He does not want admission the hospital, although I did recommend admission with a cardiology consult. Patient agrees to follow-up with his physician, and to return to the ER if his symptoms return or if he has any other problems. Disposition Clinical Impression: Atypical chest pain Disposition: HOME SELF-CARE Condition: Good Instructions (If sedation given, give patient instructions): Chest Pain (ED) Is patient prescribed a controlled substance at d/c from ED?: No Referrals: Maribell Cotter DO [REFERRING] - 1-2 days
[2020-03-27 14:34] LABS: Basophils # (A) 0.1 k/uL (0-0.2); Basophils % (A) 1 %; Eosinophils # (A) 0.1 k/uL (0-0.7); Eosinophils % (A) 1 %; HCT 47.1 % (39.0-53.0); HGB 16.4 gm/dL (13.0-17.5); Lymphocytes # (A) 2.3 k/uL (1.0-4.8); Lymphocytes % (A) 26 %; MCH 30.1 pg (25.0-35.0); MCHC 34.8 g/dL (31.0-37.0); MCV 86.4 fL (80.0-100.0); Mean Platelet Volume 8.5; Monocytes # (A) 0.5 k/uL (0-1.0); Monocytes % (A) 6 %; Neutrophils # (A) 5.5 k/uL (1.3-7.7); Neutrophils % (A) 64 %; Platelet Count 210 k/uL (150-450); RBC 5.45 m/uL (4.30-5.90); RDW 12.9 % (11.5-15.5); WBC 8.6 k/uL (3.8-10.6)
[2020-03-27 14:44] LABS: ALT 25 U/L (4-49); AST 21 U/L (17-59); African American GFR (CKD) >90 (>60 ml/min/1.73 sqM); Albumin 3.8 g/dL (3.5-5.0); Alkaline Phosphatase 61 U/L (38-126); Anion Gap 4 mmol/L; Blood Urea Nitrogen 15 mg/dL (9-20); Calcium 8.7 mg/dL (8.4-10.2); Carbon Dioxide 27 mmol/L (22-30); Chloride 106 mmol/L (98-107); Glucose 216 mg/dL (74-99); Magnesium 1.9 mg/dL (1.6-2.3); Non-African American GFR(CKD) >90 (>60 ml/min/1.73 sqM); Potassium 4.1 mmol/L (3.5-5.1); Sodium 137 mmol/L (137-145); Total Bilirubin 0.4 mg/dL (0.2-1.3); Total Protein 6.2 g/dL (6.3-8.2)
[2020-03-27 14:58] LABS: INR 0.9 (<1.2); Partial Thromboplastin Time 23.5 sec (22.0-30.0); Prothrombin Time 9.9 sec (9.0-12.0)
--- NOTE | 2020-03-27 15:15 | XR ---
EXAMINATION TYPE: XR chest 2V DATE OF EXAM: 03/27/2020 COMPARISON: 07/27/2019 HISTORY: Chest pain TECHNIQUE: FINDINGS: Heart and mediastinum are normal. Lungs are clear. Costophrenic angles are clear. There are chest leads. Bony thorax is intact. IMPRESSION: No active cardiopulmonary disease. There is clearing of the subsegmental atelectasis left lung base compared to old exam.
[2020-03-27 18:16] VITALS: PULSE 76
[2020-03-27 19:11] VITALS: BP 138/95
== END 2020-03-27 19:11 | disposition home or self-care (01) ==
LOC: EC 14:08
DX: R07.89 Other chest pain (principal); G47.33 Obstructive sleep apnea (adult) (pediatric); Z99.89 Dependence on other enabling machines and devices; Z87.891 Personal history of nicotine dependence
CPT/HCPCS: 36415; 71046; 80053; 83735; 83880; 84484; 85025; 85610; 85730; 93005; 99285

== ENCOUNTER 2023-05-02 18:02 | Emergency (ER) | payer MEDICARE, OTHER ==
--- NOTE | 2023-05-02 18:06 | ED ---
Lower Extremity Injury HPI - General Source: patient, RN notes reviewed <Kandi Warren - Last Filed: 05/02/23 18:06> <Dominguez Flores - Last Filed: 05/02/23 23:23> - General Stated Complaint: R knee injury Time Seen by Provider: 05/02/23 18:05 - History of Present Illness Initial Comments: Patient is a 52-year-old male presented ER with chief complaint of right knee pain. Patient states he had a fall in his kitchen last night. Patient has been having pain since. Patient denies any other injuries or complaints at this time. (Kandi Warren) 52-year-old male presenting with chief complaint of right knee pain. Patient states that he slipped in his kitchen last night and while he did not fall onto the knee he did have an awkward position. He has been having pain mainly over the medial portion. He is having pain with weightbearing and is unable to ambulate comfortably. No numbness, tingling, weakness. He has some mild swelling to the knee, no lower leg swelling. (Dominguez Folres) - Related Data Home Medications Medication Instructions Recorded Confirmed Aspirin EC [Ecotrin Low Dose] 162 mg PO ONCE PRN 07/27/19 03/27/20 Allergies Allergy/AdvReac Type Severity Reaction Status Date / Time No Known Allergies Allergy Verified 05/02/23 18:09 Review of Systems ROS Other: All systems not noted in ROS Statement are negative. <Kandi Warren - Last Filed: 05/02/23 18:06> ROS Other: All systems not noted in ROS Statement are negative. <Dominguez Flores - Last Filed: 05/02/23 23:23> ROS Statement: Those systems with pertinent positive or pertinent negative responses have been documented in the HPI. Past Medical History Past Medical History: Diabetes Mellitus, Hypertension, Sleep Apnea/CPAP/BIPAP Additional Past Medical History / Comment(s): Chronic back pain, sleep apnea, TBI History of Any Multi-Drug Resistant Organisms: None Reported Past Surgical History: Orthopedic Surgery Additional Past Surgical History / Comment(s): Knee and shoulder surgery Past Anesthesia/Blood Transfusion Reactions: Previous Problems w/ Anesthesia Additional Past Anesthesia/Blood Transfusion Reaction / Comment(s): Had to be reintubated in recovery due to possible anestesia reaction. Past Psychological History: PTSD Smoking Status: Former smoker, Never smoker Past Alcohol Use History: Rare Past Drug Use History: None Reported <Kandi Warren - Last Filed: 05/02/23 18:06> General Exam <Kandi Warren - Last Filed: 05/02/23 18:06> General appearance: alert, in no apparent distress Head exam: Present: atraumatic, normocephalic Eye exam: Present: normal appearance Neck exam: Present: normal inspection Respiratory exam: Absent: respiratory distress Right Knee exam: Present: tenderness, swelling. Absent: full ROM Neurological exam: Present: alert, oriented X3 Psychiatric exam: Present: normal affect, normal mood Skin exam: Present: warm, dry <Dominguez Flores - Last Filed: 05/02/23 23:23> - General Exam Comments Initial Comments: Visual Physical Exam Vital signs reviewed General: Well-appearing, nontoxic, no acute distress. Head: Normocephalic, atraumatic Eyes: PERRLA, EOMI ENT: Airway patent Chest: Nonlabored breathing Skin: No visual rash, normal skin tone Neuro: Alert and oriented 3 Musculoskeletal: No gross abnormalities (Kandi Warren) Course Vital Signs 05/02/23 18:05 Temperature 97.7 F Pulse Rate 87 Respiratory 18 Rate Blood Pressure 160/99 O2 Sat by Pulse 98 Oximetry Medical Decision Making <Kandi Warren - Last Filed: 05/02/23 18:06> <Dominguez Flores - Last Filed: 05/02/23 23:23> - Medical Decision Making I performed the quick note portion of the exam. Electronically signed by Kandi Warren PA-C (Kandi Warren) Was pt. sent in by a medical professional or institution ([facility], MANAGER [employer], urgent care, hospital, or retirement...) When possible be specific @ -No Did you speak to anyone other than the patient for history (EMS, parent, family, police, friend...)? What history was obtained from this source @ -No Did you review nursing and triage notes (agree or disagree)? Why? @ -I reviewed and agree with nursing and triage notes Were old charts reviewed (outside hosp., previous admission, EMS record, old EKG, old radiological studies, urgent care reports/EKG's, retirement records)? Report findings @ -No old charts were reviewed Differential Diagnosis (chest pain, altered mental status, abdominal pain women, abdominal pain men, vaginal bleeding, weakness, fever, dyspnea, syncope, headache, dizziness, GI bleed, back pain, seizure, CVA, palpatations, mental health, musculoskeletal)? @ -Differential Musculoskeletal Muscular strain, contusion, ligament sprain, fracture, arthritis, septic arthritis, bursitis, cellulitis, muscle spasm, nerve compression, DVT, arterial occlusion, herpes zoster, electrolyte abnormality, tumor.... This is not meant to be in all inclusive list EKG interpreted by me (3pts min.). @ -As above X-rays interpreted by me (1pt min.). @ -Knee x-ray shows no acute osseous pathology. Mild tricompartmental osteoarthritic changes CT interpreted by me (1pt min.). @ -None done U/S interpreted by me (1pt. min.). @ -None done What testing was considered but not performed or refused? (CT, X-rays, U/S, labs)? Why? @ -None What meds were considered but not given or refused? Why? @ -None Did you discuss the management of the patient with other professionals (professionals i.e. , PA, MANAGER DENTAL, lab, RT, psych nurse, social security benefits interviewer, olive picker, teacher, campus police officer, case management coordinator)? Give summary @ -No Was smoking cessation discussed for >3mins.? @ -No Was critical care preformed (if so, how long)? @ -No Were there social determinants of health that impacted care today? How? (Homelessness, low income, unemployed, alcoholism, drug addiction, transportation, low edu. Level, literacy, decrease access to med. care, fci, rehab)? @ -No Was there de-escalation of care discussed even if they declined (Discuss DNR or withdrawal of care, Hospice)? DNR status @ -No What co-morbidities impacted this encounter? (DM, HTN, Smoking, COPD, CAD, Cancer, CVA, ARF, Chemo, Hep., AIDS, mental health diagnosis, sleep apnea, morbid obesity)? @ -None Was patient admitted / discharged? Hospital course, mention meds given and route, prescriptions, significant lab abnormalities, going to OR and other pertinent info. @ -52-year-old male presenting with chief complaint of right knee pain after injury last night. Unable to bear weight. Physical exam conducted. X-rays negative for fracture or dislocation. Patient is placed in a knee immobilizer provided with crutches and instructed to follow up with orthopedics. Follow-up with PCP. Report back to ER with any new or worsening symptoms. Discussed return parameters and answered all questions. Patient conveyed verbal understanding and agreed to the plan. I discussed this case in detail with my attending Dr. Carrasquillo Undiagnosed new problem with uncertain prognosis? @ -No Drug Therapy requiring intensive monitoring for toxicity (Heparin, Nitro, Insulin, Cardizem)? @ -No Were any procedures done? @ -No Diagnosis/symptom? @ -Knee sprain Acute, or Chronic, or Acute on Chronic? @ -Acute Uncomplicated (without systemic symptoms) or Complicated (systemic symptoms)? @ -Uncomplicated Side effects of treatment? @ -No Exacerbation, Progression, or Severe Exacerbation? @ -No Poses a threat to life or bodily function? How? (Chest pain, [place], [place], pneumonia, PE, COPD, DKA, ARF, appy, cholecystitis, CVA, Diverticulitis, Homicidal, Suicidal, threat to staff... and all critical care pts) @ -No (Dominguez Flores) Disposition <Kandi Warren - Last Filed: 05/02/23 18:06> Is patient prescribed a controlled substance at d/c from ED?: No Time of Disposition: 20:04 <Dominguez Flores - Last Filed: 05/02/23 23:23> Clinical Impression: Knee sprain Disposition: HOME SELF-CARE Condition: Good Instructions (If sedation given, give patient instructions): Knee Sprain (ED) Additional Instructions: Follow up with orthopedics. Report back to ER with any new or worsening symptoms. Take Motrin and Tylenol for pain control. Rest, ice, compress, elevate. Utilize immobilizer and crutches. Referrals: [facility],Clinic [Primary Care Provider] - 1-2 days Shree Gamez DO [Doctor of Osteopathic Medicine] - 1-2 days Yuridia Julio DO [Doctor of Osteopathic Medicine] - 1-2 days
[2023-05-02 18:16] VITALS: BP 160/99; PULSE 87; RESP 18; TEMP 97.7
--- NOTE | 2023-05-02 19:10 | XR ---
EXAMINATION TYPE: XR knee complete RT DATE OF EXAM: 05/02/2023 6:26 PM CLINICAL INDICATION:Male, 52 years old with history of pain; COMPARISON: None. TECHNIQUE: XR knee complete RT; examined in Frontal, lateral and oblique projections. FINDINGS: No evidence of any acute osseous pathology, soft tissue swelling, or joint effusion is no ho. Tricompartmental osteophyte formation involving the femoral condyles, tibial plateau and patella. Mi ld joint space narrowing. IMPRESSION: 1. No acute osseous pathology. 2. Mild tricompartmental osteoarthritic changes.
== END 2023-05-02 21:00 | disposition home or self-care (01) ==
LOC: EC 18:02
DX: S83.91XA Sprain of unspecified site of right knee, initial encounter (principal); E11.9 Type 2 diabetes mellitus without complications; I10 Essential (primary) hypertension; Z87.891 Personal history of nicotine dependence; Z79.82 Long term (current) use of aspirin; W01.0XXA Fall on same level from slipping, tripping and stumbling without subsequent striking against object, initial encounter
CPT/HCPCS: 73562; 99283; L1830

== ENCOUNTER → 2023-05-16 | Outpatient (CLI) | payer MEDICARE, OTHER ==
[2023-05-16 18:34] LABS: Basophils # (A) 0.05 X 10*3/uL (0.00-0.10); Basophils % (A) 0.7 %; Eosinophils # (A) 0.07 X 10*3/uL (0.04-0.35); HCT 49.7 % (39.6-50.0); HGB 17.4 g/dL (13.0-17.0); Lymphocytes # (A) 1.92 X 10*3/uL (0.90-5.00); Lymphocytes % (A) 27.9 %; MCV 85.7 FL (80.0-97.0); Mean Platelet Volume 11.8 FL (9.5-12.2); Monocytes # (A) 0.59 X 10*3/uL (0.20-1.00); Monocytes % (A) 8.6 %; NRBC Per 100 WBC 0 X 10*3/uL (0.00-0.01); Neutrophils # (A) 4.22 X 10*3/uL (1.80-7.70); Neutrophils % (A) 61.4 %; Platelet Count 303 X 10*3/uL (140-440); RDW 12.6 % (11.5-14.5); WBC 6.88 X 10*3/uL (4.50-10.00)
[2023-05-16 18:35] LABS: Anion Gap 9.8 mmol/L (4.00-12.00); Carbon Dioxide 27.2 mmol/L (21.6-31.8); Potassium 4.9 mmol/L (3.5-5.5)
== END | disposition home or self-care (01) ==
LOC: LABWHC1 14:01
PROVIDERS: ATTEND Orthopaedic Surgery
DX: Z01.818 Encounter for other preprocedural examination (principal); M23.91 Unspecified internal derangement of right knee
CPT/HCPCS: 36415; 80051; 85025; 93005

== ENCOUNTER 2023-05-29 06:59 | Day surgery (SDC) | payer MEDICARE, OTHER ==
[2023-05-23 12:08] VITALS: BMI 29.5
--- NOTE | 2023-05-28 12:10 | HP ---
HISTORY AND PHYSICAL DATE OF SURGERY: 05/29/2023. HISTORY OF PRESENT ILLNESS: Ankush Salcedo is a 52-year-old gentleman seen with progressive right knee pain. We discussed options regarding treatment. He elected to proceed with right knee arthroscopy. Consent was obtained. PAST MEDICAL HISTORY: Noncontributory. PAST SURGICAL HISTORY: Noncontributory. DAILY MEDICATIONS: 1. Motrin. 2. Tylenol. ALLERGIES: None. SOCIAL HISTORY: Denies tobacco use. PHYSICAL EVALUATION OF THE RIGHT KNEE: Range of motion is -2/3 to 120 degrees. Mild to moderate effusion. Tenderness, medial joint line. Positive medial Vj's. Ligaments stable. Hip rotation without pain. Distal neurovascular exam is intact. IMAGING STUDIES: Radiographs of the right knee revealed mild osteoarthritis along with an intra- articular effusion. IMPRESSION: Internal derangement of right knee with medial meniscal tear. PLAN: Right knee arthroscopy with partial medial meniscectomy and debridement. MMODL / IJN: [id number] /
[2023-05-29] MEDS ORDERED: ONDANSETRON 4 MG/2 ML VIAL IVP ONE (07:01)
[2023-05-29] MEDS ORDERED: DEXAMETHASONE SOD PHOSPHATE 4 MG/ML 1 ML VIAL IV ONE (07:01)
[2023-05-29] MEDS ORDERED: LACTATED RINGERS 1,000 ML IV SCH (07:01)
[2023-05-29] MEDS ORDERED: LIDOCAINE 1% (10MG/ML) FOR IV START INTRADERMA ONE (07:55)
[2023-05-29] MEDS ORDERED: LIDOCAINE 1% INJ 10MG/ML (20 ML MDV) ONE (08:18)
[2023-05-29] MEDS ORDERED: MIDAZOLAM 2 MG/2 ML VIAL ONE (08:18)
[2023-05-29] MEDS ORDERED: fentaNYL (PF) 50 MCG/ML 2 ML AMP ONE (08:18)
[2023-05-29] MEDS ORDERED: PROPOFOL 10 MG/ML 20 ML VIAL IV ONE (08:18)
[2023-05-29 08:26] LABS: Glucose,Whole Blood 163 mg/dL (70-110)
[2023-05-29 08:48] VITALS: RESP 16
[2023-05-29] MEDS ORDERED: BUPIVACAINE (PF) 0.25% 30 ML VIAL SQ ONE ×2 (08:48→08:56)
--- NOTE | 2023-05-29 09:12 | P.OP ---
Date of Procedure: 05/29/23 Preoperative Diagnosis: Internal derangement right knee Postoperative Diagnosis: 1. Tear medial meniscus right knee 2. Reactive synovitis medial, lateral and suprapatellar compartments right knee 3. 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 Arthroscopic partial medial meniscectomy right knee 2. Arthroscopic partial synovectomy medial, lateral and suprapatellar compartments right knee 3. Arthroscopic chondroplasty femoral sulcus right knee Anesthesia: ROBINA, local Surgeon: Bayron Baeza Estimated Blood Loss (ml): 5 Pathology: none sent Condition: stable Disposition: PACU Indications for Procedure: 52-year-old patient who is seen with progressive right knee pain. After having treatment options discussed, he elected to proceed with right knee arthroscopy. Operative Findings: See description of procedure Description of Procedure: Patient was taken to the operative suite. Patient underwent a general anesthetic by the department of anesthesia. Patient was given preoperative antibiotics. The right lower extremity was placed in a well-padded arthroscopic leg sethi. The right leg was prepped and draped in the normal sterile orthopedic fashion. A lateral parapatellar and suprapatellar incision was made. Trochars were inserted. Arthroscopy was initiated. Suprapatellar pouch revealed diffuse thick reactive synovitis. The patellofemoral joint appeared to articulate congruently. There was grade 1 chondromalacia of the femoral sulcus. The scope was guided into the medial gutter. No loose bodies or plica were identified. The scope was then guided into the medial compartment. A medial parapatellar incision was made. Trocar inserted followed by probe. Was a complex tear involving the posterior horn of the medial meniscus. There is early grade 1 chondromalacia changes of the tibial plateau without tears. There was some reactive synovitis anteriorly. I performed a partial medial meniscectomy getting down to stable meniscal tissue. I performed a partial synovectomy. The residual meniscus was probed and was found to be stable. There was good decompression of the synovitis. Scope and probe were then guided into the intercondylar notch. Cruciates were identified, probed and found to be stable. The scope and probe were then guided into lateral compartment. Lateral meniscus was probed and was found to be stable. There was no chondromalacia present lateral compartment. There was some reactive synovitis anteriorly. Motorize shaver was introduced and partial synovectomy was performed. Shaver was removed. There was good decompression of the synovitis. The scope was in guided back into the suprapatellar compartment. I introduced a motorized shaver into the suprapatellar compartment. I debrided some piecemeal fragments of meniscus that I encountered. I performed a chondroplasty of femoral sulcus followed by partial synovectomy. Shaver was now removed. The residual osteochondral surface of the femoral sulcus was stable. There was good decompression of the synovitis. Instruments were now removed from the joint. The joint was infiltrated with .25% Marcaine. Steri-Strips were applied to the portal sites. Sterile dressings were applied. The patient was placed into a KONG hose. No tourniquet was utilized. The patient was awakened, transferred to a bed and taken to recovery stable satisfactory condition.
[2023-05-29 09:22] LABS: Glucose,Whole Blood 195 mg/dL (70-110)
[2023-05-29] MEDS: HYDROmorphone 0.5 MG/0.5 ML SYRINGE IVP PRN ×2 (09:28→09:57)
[2023-05-29 09:38] VITALS: TEMP 97.7
[2023-05-29] MEDS ORDERED: KETOROLAC 15 MG/ML 1 ML VIAL IVP ONE (09:44)
[2023-05-29 10:49] VITALS: BP 158/92; PULSE 58
== END 2023-05-29 11:32 | disposition home or self-care (01) ==
LOC: OR 06:59
PROVIDERS: ATTEND Orthopaedic Surgery
DX: S83.241A Other tear of medial meniscus, current injury, right knee, initial encounter (principal); M65.161 Other infective (teno)synovitis, right knee; M22.41 Chondromalacia patellae, right knee; I10 Essential (primary) hypertension; G47.33 Obstructive sleep apnea (adult) (pediatric); E11.9 Type 2 diabetes mellitus without complications; Z79.1 Long term (current) use of non-steroidal anti-inflammatories (NSAID); Z79.899 Other long term (current) drug therapy; X58.XXXA Exposure to other specified factors, initial encounter
CPT/HCPCS: 29881; 29876; J2250; J1100; J0690; J2405; J2001; J3010; J1885; J2704; J1170; J0665

== ENCOUNTER 2023-07-23 13:20 | Emergency (ER) | payer OTHER ==
[2023-07-23 13:33] VITALS: TEMP 98.2
[2023-07-23 14:15] LABS: Basophils # (A) 0.1 k/uL (0-0.2); Basophils % (A) 1 %; Eosinophils # (A) 0.1 k/uL (0-0.7); Eosinophils % (A) 1 %; HCT 49.1 % (39.0-53.0); HGB 17.4 gm/dL (13.0-17.5); Lymphocytes # (A) 1.5 k/uL (1.0-4.8); Lymphocytes % (A) 20 %; MCHC 35.4 g/dL (31.0-37.0); MCV 87.5 fL (80.0-100.0); Mean Platelet Volume 8.7; Monocytes # (A) 0.5 k/uL (0-1.0); Monocytes % (A) 7 %; Neutrophils # (A) 5.5 k/uL (1.3-7.7); Neutrophils % (A) 70 %; Platelet Count 247 k/uL (150-450); RBC 5.62 m/uL (4.30-5.90); RDW 12.8 % (11.5-15.5); WBC 7.8 k/uL (3.8-10.6)
[2023-07-23] MEDS: LORazepam 1 MG TAB PO STA ×2 (14:24→15:34)
[2023-07-23] MEDS: SODIUM CHLORIDE 0.9% 1,000 ML IV STA (14:24)
[2023-07-23 14:25] LABS: ALT 35 U/L (4-49); AST 28 U/L (17-59); African American GFR (CKD) >90 (>60 ml/min/1.73 sqM); Albumin 3.8 g/dL (3.5-5.0); Alkaline Phosphatase 64 U/L (38-126); Anion Gap 8 mmol/L; Blood Urea Nitrogen 16 mg/dL (9-20); Calcium 8.9 mg/dL (8.4-10.2); Carbon Dioxide 23 mmol/L (22-30); Chloride 105 mmol/L (98-107); Glucose 245 mg/dL (74-99); Non-African American GFR(CKD) >90 (>60 ml/min/1.73 sqM); Sodium 136 mmol/L (137-145); Total Bilirubin 0.5 mg/dL (0.2-1.3); Total Protein 5.8 g/dL (6.3-8.2)
[2023-07-23 14:30] LABS: INR 0.9 (<1.2); Partial Thromboplastin Time 23.9 sec (22.0-30.0); Prothrombin Time 10.4 sec (10.0-12.5)
--- NOTE | 2023-07-23 14:30 | CT ---
EXAMINATION TYPE: CT brain wo con DATE OF EXAM: 07/23/2023 COMPARISON: None available. HISTORY: Numbness to tongue and lips with memory loss. CT DLP: 1095.4 mGycm Automated exposure control for dose reduction was used. FINDINGS: There is no acute intracranial hemorrhage, mass, mass effect, midline shift, extra axial fluid collec tion or hydrocephalus. The mendes-white distinction is intact without evidence of an acute major vessel infarct. The visualized paranasal sinuses and mastoid air cells are clear. IMPRESSION: NO ACUTE INTRACRANIAL PROCESS.
--- NOTE | 2023-07-23 14:52 | XR ---
EXAMINATION TYPE: XR chest 2V DATE OF EXAM: 07/23/2023 2:23 PM CLINICAL INDICATION:Male, 52 years old with history of altered mental status; [facility] COMPARISON: Chest radiographs from 03/27/2020 TECHNIQUE: XR chest 2V Frontal and lateral views of the chest. FINDINGS: Lungs/Pleura: There is no evidence of pleural effusion, focal consolidation, or pneumothorax. Pulmonary vascularity: Unremarkable. Heart/mediastinum: Cardiomediastinal silhouette is unremarkable. Musculoskeletal: No acute osseous pathology. Other findings: None IMPRESSION: No acute cardiopulmonary disease/process.
--- NOTE | 2023-07-23 15:24 | ED ---
General Adult HPI - General Chief complaint: Neuro Symptoms/Deficit Stated complaint: facial numbness Time Seen by Provider: 07/23/23 13:45 Source: patient, RN notes reviewed, old records reviewed Mode of arrival: ambulatory Limitations: no limitations - History of Present Illness Initial comments: Is a 52-year-old male who presents emergency department for what he describes as facial numbness. Has been having paresthesias of his tongue and bilateral lips. Does not localize to one side or the other. Has been ongoing for the last day and a half on and off. 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 He has a history of PTSD as well as anxiety. Is not on any medications for this. Denies any other symptoms at this time. Had a family friend that dropped with right leg paresthesias about a year ago and patient became concerned which is why presents for evaluation. Endorses feeling anxious at this time. Currently is asymptomatic.Has been getting worked up outpatient for a kidney stone and came from CT outpatient. - Related Data Home Medications Medication Instructions Recorded Confirmed Acetaminophen [Tylenol Extra 1,000 mg PO Q8H PRN 05/23/23 05/23/23 Strength] Ibuprofen [Motrin Ib] 400 - 600 mg PO Q8H PRN 05/23/23 05/23/23 Naproxen Sodium [Aleve] 220 mg PO DAILY PRN 05/23/23 05/23/23 Previous Rx's Medication Instructions Recorded HYDROcodone/APAP 5-325MG [[place] 1 tab PO Q6HR PRN #12 tab 05/29/23 5-325] Ibuprofen [Motrin] 800 mg PO Q8H PRN #40 tab 05/29/23 LORazepam [Ativan] 0.5 mg PO BID PRN 3 Days #6 tab 07/23/23 LORazepam [Ativan] 0.5 mg PO BID PRN 3 Days #6 tab 07/23/23 Allergies Allergy/AdvReac Type Severity Reaction Status Date / Time No Known Allergies Allergy Verified 05/29/23 07:45 Review of Systems ROS Statement: Those systems with pertinent positive or pertinent negative responses have been documented in the HPI. Review of Systems: CONST: Denies fever EYES: Denies blurry vision ENT: Denies nasal congestion C/V: Denies Chest pain RESP: Denies shortness of breath GI: Denies abdominal pain : Denies dysuria SKIN: Denies rash. MSK: Denies joint pain. NEURO: Denies headache ROS Other: All systems not noted in ROS Statement are negative. Past Medical History Past Medical History: Diabetes Mellitus, Hypertension, Sleep Apnea/CPAP/BIPAP Additional Past Medical History / Comment(s): Chronic back pain, sleep apnea, TBI History of Any Multi-Drug Resistant Organisms: None Reported Past Surgical History: Orthopedic Surgery Additional Past Surgical History / Comment(s): Knee and shoulder surgery Past Anesthesia/Blood Transfusion Reactions: Previous Problems w/ Anesthesia Additional Past Anesthesia/Blood Transfusion Reaction / Comment(s): Had to be reintubated in recovery due to possible anestesia reaction. Past Psychological History: PTSD Smoking Status: Former smoker, Never smoker General Exam - General Exam Comments Initial Comments: General: Appears in no acute distress. Appears anxious HEAD: Normal with no signs of head trauma. EYES: PERRLA, EOMI, conjunctiva normal, no discharge. ENT: Hearing grossly intact, normal oropharynx. RESPIRATORY: Clear breath sounds bilaterally. No wheezes, rales, or rhonchi. C/V: Regular rate and rhythm. S1 and S2 auscultated, no edema, peripheral pulses 2+ and intact throughout ABD: Abd is soft, nontender, nondistended EXT: Normal range of motion, no obvious deformity SKIN: No rashes or lesions observed on exposed skin. NEURO: Alert and oriented x 4. Cranial nerves II-XII intact. No focal sensory or strength deficits. NIH is 0. GCS of 15. Limitations: no limitations Course Vital Signs 07/23/23 13:29 Temperature 98.2 F Pulse Rate 92 Respiratory 16 Rate Blood Pressure 145/90 O2 Sat by Pulse 97 Oximetry Medical Decision Making - Medical Decision Making Was pt. sent in by a medical professional or institution (, PA, INTERACTIVE WEB DEVELOPER, urgent care, hospital, or longterm...) When possible be specific @ -No Did you speak to anyone other than the patient for history (EMS, parent, family, police, friend...)? What history was obtained from this source @ -No Did you review nursing and triage notes (agree or disagree)? Why? @ -I reviewed and agree with nursing and triage notes Were old charts reviewed (outside hosp., previous admission, EMS record, old EKG, old radiological studies, urgent care reports/EKG's, longterm records)? Report findings @ -Old charts reviewed Differential Diagnosis (chest pain, altered mental status, abdominal pain women, abdominal pain men, vaginal bleeding, weakness, fever, dyspnea, syncope, headache, dizziness, GI bleed, back pain, seizure, CVA, palpatations, mental health, musculoskeletal)? @ -CVA, TIA, anxiety, paresthesias, hyperglycemia. This list is not all inclusive. EKG interpreted by me (3pts min.). @ -As above X-rays interpreted by me (1pt min.). @ -Chest x-ray shows no obvious acute cardiopulmonary process. CT interpreted by me (1pt min.). @ -CT brain reveals no obvious acute intracranial process. U/S interpreted by me (1pt. min.). @ -None done What testing was considered but not performed or refused? (CT, X-rays, U/S, labs)? Why? @ -None What meds were considered but not given or refused? Why? @ -None Did you discuss the management of the patient with other professionals (professionals i.e. , PA, INTERACTIVE WEB DEVELOPER, lab, RT, psych nurse, child welfare social worker, radial drill press set up operator, teacher, grant officer, case management manager)? Give summary @ -No Was smoking cessation discussed for >3mins.? @ -No Was critical care preformed (if so, how long)? @ -No Were there social determinants of health that impacted care today? How? (Ho melessness, low income, unemployed, alcoholism, drug addiction, transportation, low edu. Level, literacy, decrease access to med. care, [facility], rehab)? @ -No Was there de-escalation of care discussed even if they declined (Discuss DNR or withdrawal of care, Hospice)? DNR status @ -No What co-morbidities impacted this encounter? (DM, HTN, Smoking, COPD, CAD, Cancer, CVA, ARF, Chemo, Hep., AIDS, mental health diagnosis, sleep apnea, morbid obesity)? @ -None Was patient admitted / discharged? Hospital course, mention meds given and route, prescriptions, significant lab abnormalities, going to OR and other pertinent info. @ -Patient presents complaining of paresthesias of the tongue and lips that have since resolved. Currently has no acute complaints at this time. Presents for evaluation. NIH is 0. Patient does not meet criteria for stroke activation. However we will obtain CT brain as well as cardiac workup. He was in agreement this plan. He will be given a dose of Ativan as he does appear anxious as well as 1 L fluid bolus. Vital signs are within acceptable limits. Laboratory studies are all within acceptable limits except for mild hyperglycemia of 245. Troponin undetectable. EKG unremarkable. Imaging negative for any acute intracranial process or acute cardiopulmonary process. At this time I updated patient. He remains asymptomatic and feels improved. States he agrees it was likely anxiety. He will be discharged home at this time. He will follow-up with his PCP. Patient will be discharged home with a short-term prescription of Ativan. He was in agreement this plan.Has remained asymptomatic throughout his stay in the department. I will provide the patient with a prescription for Ativan. I instructed the patient to follow up with their PCP in the next 1-3 days.. I explained that the patient should return to the emergency department if they experience any worsening symptoms. Strict return precautions were discussed with the patient. The patient expressed understanding of these instructions. I answered all questions that the patient had. The patient was discharged home in good condition with their prescriptions and follow up information. Undiagnosed new problem with uncertain prognosis? @ -No Drug Therapy requiring intensive monitoring for toxicity (Heparin, Nitro, Insulin, Cardizem)? @ -No Were any procedures done? @ -No Diagnosis/symptom? @ -Anxiety, paresthesias Acute, or Chronic, or Acute on Chronic? @ -Acute Uncomplicated (without systemic symptoms) or Complicated (systemic symptoms)? @ -Uncomplicated Side effects of treatment? @ -No Exacerbation, Progression, or Severe Exacerbation? @ -No Poses a threat to life or bodily function? How? (Chest pain, [place], AR, pneumonia, PE, COPD, DKA, ARF, appy, cholecystitis, CVA, Diverticulitis, Homicidal, Suicidal, threat to staff... and all critical care pts) @ -No - Lab Data Result diagrams: 07/23/23 14:06 07/23/23 14:06 Lab Results 07/23/23 07/23/23 07/23/23 Range/Units 14:06 14:06 14:06 WBC 7.8 (3.8-10.6) k/uL RBC 5.62 (4.30-5.90) m/uL Hgb 17.4 (13.0-17.5) gm/dL Hct 49.1 (39.0-53.0) % MCV 87.5 (80.0-100.0) fL MCH 31.0 (25.0-35.0) pg MCHC 35.4 (31.0-37.0) g/dL RDW 12.8 (11.5-15.5) % Plt Count 247 (150-450) k/uL MPV 8.7 Neutrophils % 70 % Lymphocytes % 20 % Monocytes % 7 % Eosinophils % 1 % Basophils % 1 % Neutrophils # 5.5 (1.3-7.7) k/uL Lymphocytes # 1.5 (1.0-4.8) k/uL Monocytes # 0.5 (0-1.0) k/uL Eosinophils # 0.1 (0-0.7) k/uL Basophils # 0.1 (0-0.2) k/uL PT 10.4 (10.0-12.5) sec INR 0.9 (<1.2) APTT 23.9 (22.0-30.0) sec Sodium 136 L (137-145) mmol/L Potassium 4.0 (3.5-5.1) mmol/L Chloride 105 (98-107) mmol/L Carbon Dioxide 23 (22-30) mmol/L Anion Gap 8 mmol/L BUN 16 (9-20) mg/dL Creatinine 0.60 L (0.66-1.25) mg/dL Est GFR (CKD-EPI)AfAm >90 (>60 ml/min/1.73 sqM) Est GFR (CKD-EPI)NonAf >90 (>60 ml/min/1.73 sqM) Glucose 245 H (74-99) mg/dL Calcium 8.9 (8.4-10.2) mg/dL Total Bilirubin 0.5 (0.2-1.3) mg/dL AST 28 (17-59) U/L ALT 35 (4-49) U/L Alkaline Phosphatase 64 (38-126) U/L Troponin I (0.000-0.034) ng/mL Total Protein 5.8 L (6.3-8.2) g/dL Albumin 3.8 (3.5-5.0) g/dL 07/23/23 Range/Units 14:06 WBC (3.8-10.6) k/uL RBC (4.30-5.90) m/uL Hgb (13.0-17.5) gm/dL Hct (39.0-53.0) % MCV (80.0-100.0) fL MCH (25.0-35.0) pg MCHC (31.0-37.0) g/dL RDW (11.5-15.5) % Plt Count (150-450) k/uL MPV Neutrophils % % Lymphocytes % % Monocytes % % Eosinophils % % Basophils % % Neutrophils # (1.3-7.7) k/uL Lymphocytes # (1.0-4.8) k/uL Monocytes # (0-1.0) k/uL Eosinophils # (0-0.7) k/uL Basophils # (0-0.2) k/uL PT (10.0-12.5) sec INR (<1.2) APTT (22.0-30.0) sec Sodium (137-145) mmol/L Potassium (3.5-5.1) mmol/L Chloride (98-107) mmol/L Carbon Dioxide (22-30) mmol/L Anion Gap mmol/L BUN (9-20) mg/dL Creatinine (0.66-1.25) mg/dL Est GFR (CKD-EPI)AfAm (>60 ml/min/1.73 sqM) Est GFR (CKD-EPI)NonAf (>60 ml/min/1.73 sqM) Glucose (74-99) mg/dL Calcium (8.4-10.2) mg/dL Total Bilirubin (0.2-1.3) mg/dL AST (17-59) U/L ALT (4-49) U/L Alkaline Phosphatase (38-126) U/L Troponin I <0.012 (0.000-0.034) ng/mL Total Protein (6.3-8.2) g/dL Albumin (3.5-5.0) g/dL - EKG Data -: EKG Interpreted by Me EKG Comments: 12-lead Electrocardiogram Interpretation Note EKG was reviewed and interpreted by myself. 12-lead ECG performed at 1330 is interpreted by me as revealing normal sinus rhythm at a rate of 87 beats per minute. [place] is normal. [place] interval is 171 ms, QRS duration 79 ms, QTc is 420 ms.. There were no ST or T wave abnormalities to suggest myocardial ischemia or injury. R wave progression across the precordium was satisfactory. By my interpretation this EKG is non-diagnostic for acute ischemia. Disposition Clinical Impression: Anxiety, Facial paresthesia Disposition: HOME SELF-CARE Condition: Good Instructions (If sedation given, give patient instructions): Anxiety (ED) Prescriptions: LORazepam [Ativan] 0.5 mg PO BID PRN 3 Days #6 tab PRN Reason: Anxiety LORazepam [Ativan] 0.5 mg PO BID PRN 3 Days #6 tab PRN Reason: Anxiety Is patient prescribed a controlled substance at d/c from ED?: No Referrals: [facility],Clinic [Primary Care Provider] - 1-2 days Time of Disposition: 15:18
[2023-07-23 15:56] VITALS: BP 137/96; PULSE 74; RESP 14
== END 2023-07-23 15:40 | disposition home or self-care (01) ==
LOC: EC 13:20
DX: F41.9 Anxiety disorder, unspecified (principal); R20.2 Paresthesia of skin; I45.9 Conduction disorder, unspecified; E11.9 Type 2 diabetes mellitus without complications; I10 Essential (primary) hypertension; G47.30 Sleep apnea, unspecified; Z87.891 Personal history of nicotine dependence
CPT/HCPCS: 36415; 70450; 71046; 80053; 84484; 85025; 85610; 85730; 93005; 96360; 99285

== ENCOUNTER → 2023-07-23 | Outpatient (CLI) | payer OTHER ==
--- NOTE | 2023-07-23 13:57 | CT ---
EXAMINATION: CT ABDOMEN AND PELVIS WITHOUT CONTRAST DATE OF EXAMINATION: 07/23/2023. COMPARISON: None available. INDICATION: Flank pain and hematuria. PROCEDURE: Axial CT of the abdomen and pelvis was performed without contrast and sagittal and coron al reformatted images were performed. CT dose lowering techniques were used, to include: automated ex posure control, adjustment for patient size, and/or use of iterative reconstruction. FINDINGS: LOWER CHEST : There is a 1.2 cm irregular nodule within the right lower lobe on series 4 image 10. T he visualized lung bases otherwise appear clear. There are no pleural or pericardial effusions. ABDOMEN: Liver and Biliary system: Normal. Adrenal glands: Normal. Kidneys and ureters: Normal. Spleen: Normal. Pancreas: Normal. Gallbladder: Normal. Lymph nodes, Peritoneum and mesentery: There is no mesenteric or retroperitoneal lymphadenopathy. Gastrointestinal tract: There are no dilated loops of bowel or free intraperitoneal air. The appe ndix is normal. There is matter scattered colonic diverticulosis seen diffusely without evidence of d iverticulitis. Aorta/IVC: No aortic aneurysm. IVC normal. Abdominal wall: Normal. PELVIS: Fluid: There is no free fluid in the pelvis. Lymph Nodes: There is no pelvic or inguinal lymphadenopathy.. Urinary bladder: The prostate is mildly enlarged at the base of the bladder.. BONES: There are no osseous destructive lesions.. ADDITIONAL SIGNIFICANT FINDINGS: None. IMPRESSION: 1. No renal stones, ureteral stones or hydronephrosis. 2. No bowel obstruction or appendicitis. 3. Diverticulosis without evidence of diverticulitis. 4. Prostatomegaly.
== END | disposition home or self-care (01) ==
LOC: RADCTMAIN 13:01
PROVIDERS: ATTEND Family Medicine
DX: N40.0 Benign prostatic hyperplasia without lower urinary tract symptoms (principal); K57.30 Diverticulosis of large intestine without perforation or abscess without bleeding; R31.9 Hematuria, unspecified; Z87.442 Personal history of urinary calculi
CPT/HCPCS: 74176